=== PATIENT | male | born 1945 | race Caucasian/White ===

== ENCOUNTER 2017-06-11 16:57 | Emergency (ER) | payer OTHER ==
[2017-06-11 17:54] LABS: BASOPHILS # (AUTO) 0.1 10^3/uL (0.0-0.1); BASOPHILS % (AUTO) 0.7 %; EOSINOPHILS # (AUTO) 0.1 10^3/uL (0.0-0.7); EOSINOPHILS % (AUTO) 0.8 %; HGB - HEMOGLOBIN 12.9 g/dL (14.0-18.0); LYMPHOCYTES # (AUTO) 2.4 10^3/uL (1.5-3.5); LYMPHOCYTES % (AUTO) 30.6 %; MEAN CORPUSCULAR HEMOGLOBIN 19.4 pg (27.0-31.0); MEAN CORPUSCULAR HGB CONC 30.6 g/dL (32.0-36.0); MEAN CORPUSCULAR VOLUME 63.4 fL (80.0-94.0); MEAN PLATELET VOLUME 8.5 fL (7.4-11.4); MONOCYTES # (AUTO) 0.8 10^3/uL (0.0-1.0); MONOCYTES % (AUTO) 9.8 %; NEUTROPHILS # (AUTO) 4.5 10^3/uL (1.5-6.6); NEUTROPHILS % (AUTO) 58.1 %; PLT - PLATELET COUNT 221 10^3/uL (130-450); RED BLOOD COUNT 6.63 10^6/uL (4.70-6.10); RED CELL DISTRIBUTION WIDTH 15.8 % (12.0-15.0); WHITE BLOOD COUNT 7.7 x10^3/uL (4.8-10.8)
[2017-06-11 18:06] LABS: ALBUMIN 4.6 g/dL (3.2-5.5); ALBUMIN/GLOBULIN RATIO 1.2 (1.0-2.2); BILIRUBIN,TOTAL 0.7 mg/dL (0.2-1.0); CALCIUM 9.5 mg/dL (8.5-10.3); TOTAL PROTEIN 8.4 g/dL (6.7-8.2)
--- NOTE | 2017-06-11 18:22 | XRAY Preliminary Report ---
Exam: XR CHEST 2 VIEW X-RAY IMPRESSION: Mild bibasal opacity, atelectasis or minimal infiltrate. [facility] SITE ID: [id number]
--- NOTE | 2017-06-11 18:22 | XRAY Report ---
EXAM: CHEST RADIOGRAPHY EXAM DATE: 06/11/2017 06:02 PM. CLINICAL HISTORY: Cough. COMPARISON: None. TECHNIQUE: 2 views. FINDINGS: Lungs/Pleura: Mild bibasal opacity, atelectasis or minimal infiltrate. No focal pulmonary consolidati on. No pleural effusion or pneumothorax are evident. Mediastinum: Heart size is normal. There are aortic calcifications. Other: Right shoulder arthroplasty. IMPRESSION: Mild bibasal opacity, atelectasis or minimal infiltrate. [facility] Referring Provider Line: [phone] SITE ID: [id number]
[2017-06-11] MEDS ORDERED: IPRATROPIUM/ALBUTEROL 3 ML NEB INH STA (18:41)
--- NOTE | 2017-06-11 18:43 | ED Physician Documentation ---
PD HPI DYSPNEA - Stated complaint Stated Complaint: SOA - Chief complaint Chief Complaint: Resp - History obtained from History obtained from: Patient, Friend - History of Present Illness Timing - onset: Other (8-year-old with diabetes and hypertension but no known coronary disease presents with 10 days of minimally productive cough associated with exertional dyspnea. He has had some pain between the shoulder blades that is better with exertion. No primary chest pain or tightness. No pedal edema.) Review of Systems Ten Systems: 10 systems reviewed and negative Constitutional: denies: Fever, Chills Nose: denies: Rhinorrhea / runny nose, Congestion Cardiac: denies: Chest pain / pressure, Palpitations, Pedal edema, Calf pain Respiratory: reports: Dyspnea, Cough, Wheezing PD PAST MEDICAL HISTORY - Past Medical History Past Medical History: Yes Cardiovascular: Hypertension Endocrine/Autoimmune: Type 2 diabetes - Present Medications Home Medications: Ambulatory Orders Medication Instructions Recorded Confirmed Albuterol Sulfate [Proventil Hfa 1 - 2 puffs IH Q4H PRN #1 06/11/17 Inhaler] [email or web address] Azithromycin [Zithromax] 250 mg PO DAILY #4 tablet 06/11/17 Diabetic Medications 06/11/17 Syrge-Ndl,Ins 0.3 ml Half Jerry 1 each MC 06/11/17 [Insulin Syringe] guaiFENesin/CODEINE [Robitussin AC] 5 - 10 ml PO Q6H PRN #120 ml 06/11/17 - Allergies Allergies/Adverse Reactions: Allergies Allergy/AdvReac Type Severity Reaction Status Date / Time No Known Drug Allergies Allergy Verified 06/11/17 17:01 - Living Situation Living Situation: reports: Alone - Social History Does the pt smoke?: No Does the pt drink ETOH?: No Does the pt have substance abuse?: No - Family History Family history: reports: Non contributory PD ED PE NORMAL - Vitals Vital signs reviewed: Yes - General General: Alert and oriented X 3, No acute distress - HEENT HEENT: PERRL, EOMI - Neck Neck: Supple, no meningeal sign, No bony TTP - Cardiac Cardiac: RRR, No murmur - Respiratory Respiratory: Other (Wheezy and rhonchorous throughout) - Abdomen Abdomen: Soft, Non tender - Back Back: No CVA TTP, No spinal TTP - Derm Derm: Normal color, Warm and dry - Extremities Extremities: No edema, No calf tenderness / cord - Neuro Neuro: Alert and oriented X 3, Normal speech - Psych Psych: Normal mood, Normal affect Results - Vitals Vitals: Vital Signs - 24 hr 06/11/17 06/11/17 06/11/17 16:59 18:50 19:05 Temperature 36.5 C Heart Rate 73 72 71 Respiratory 26 H 9 L 12 Rate Blood Pressure 174/76 H 152/79 H O2 Saturation 95 94 Oxygen O2 Source Room air - EKG (time done) 1741 Rate: Rate (enter#) (71) Rhythm: NSR Intervals: RBBB Ischemia: Other (Deep T-wave inversion especially in the septal and lateral leads, there is no prior available.) Compare to prior EKG: Old EKG unavailable Computer interpretation: Agree with computer - Labs Labs: Laboratory Tests 06/11/17 06/11/17 06/11/17 17:40 17:40 17:40 WBC 7.7 RBC 6.63 H Hgb 12.9 L Hct 42.0 MCV 63.4 L MCH 19.4 L MCHC 30.6 L RDW 15.8 H Plt Count 221 MPV 8.5 Neut # 4.5 Lymph # 2.4 [place] # 0.8 Eos # 0.1 Baso # 0.1 Absolute Nucleated RBC 0.01 Nucleated RBC % 0.2 Manual Slide Review Indicated WBC Morphology NORMAL APPEARANCE Platelet Estimate NORMAL (130-450,000) Platelet Morphology 1+ LARGE PLATELETS RBC Morph Micro Appear 1+ TARGET CELLS Sodium 137 Potassium 4.5 Chloride 102 Carbon Dioxide 25 Anion Gap 10.0 BUN 28 H Creatinine 1.0 Estimated GFR (MDRD) 74 L Glucose 181 H Calcium 9.5 Total Bilirubin 0.7 AST 22 ALT 24 Alkaline Phosphatase 81 Troponin I < 0.04 Total Protein 8.4 H Albumin 4.6 Globulin 3.9 Albumin/Globulin Ratio 1.2 Lipase 41 PD MEDICAL DECISION MAKING - ED course ED course: He presents with what sounds frankly like a chest cold, has a mildly abnormal Chest x-ray, but has a very ischemic appearing EKG. There is no primary chest pain and his troponin at least initially is negative, [facility] I was not able to get a prior EKG per se but I did get an interpretation, the interpretation showed pretty much similar to what we are looking today including a "marked" T-wave abnormality. Given that I am confident that his EKG changes are old but he was still advised to follow-up for a stress test. Departure - Departure Disposition: 01 Home, Self Care Clinical Impression: Bronchitis, Abnormal EKG Condition: Good Record reviewed to determine appropriate education?: Yes Instructions: ED Bronchitis Asthmatic Prescriptions: Albuterol Sulfate [Proventil Hfa Inhaler] 1 - 2 puffs IH Q4H PRN #1 [email or web address] PRN Reason: Cough Azithromycin [Zithromax] 250 mg PO DAILY #4 tablet guaiFENesin/CODEINE [Robitussin AC] 5 - 10 ml PO Q6H PRN #120 ml PRN Reason: Cough Comments: Follow-up with your doctor at the [facility]. Take a baby aspirin every day until he or she tells you otherwise. Discussed the EKG with her, I would recommend following this with a stress test although it does seem like the changes are old from 2012 EKG. Return if worse or if he develop any chest pain.
[2017-06-11 19:55] LABS: PLATELET ESTIMATE, MANUAL NORMAL (130-450,000) (NORMAL); PLATELET MORPHOLOGY 1+ LARGE PLATELETS (NORMAL)
[2017-06-11] MEDS ORDERED: guaiFENesin/CODEINE 5 ML UDC PO STA (20:01)
[2017-06-11] MEDS ORDERED: AZITHROMYCIN 250 MG TABLET PO STA (20:01)
[2017-06-11 20:24] VITALS: BP 150/77
== END 2017-06-11 20:21 | disposition home or self-care (01) ==
LOC: ED 16:57
DX: J40 Bronchitis, not specified as acute or chronic (principal); I45.10 Unspecified right bundle-branch block; R94.31 Abnormal electrocardiogram [ECG] [EKG]; E11.9 Type 2 diabetes mellitus without complications; Z79.84 Long term (current) use of oral hypoglycemic drugs; I10 Essential (primary) hypertension
CPT/HCPCS: 36415; 71046; 80053; 83690; 84484; 85025; 93005; 94640; 99283; 99284; A9270; J7620

== ENCOUNTER 2020-03-14 14:24 | Emergency (ER) | payer MEDICARE ==
--- NOTE | 2020-03-14 15:22 | ED Physician Documentation ---
PD HPI FOCAL NEURO - Stated complaint Stated Complaint: RT SIDE FACE DROOPING - Chief complaint Chief Complaint: Neuro - History obtained from History obtained from: Patient - History of Present Illness Timing - onset: How many days ago (3) Timing - duration: Days (3) Timing - details: Gradual onset, Still present Severity of deficit: Moderate Weakness: Face (difficulty closing right eye completely and is using lubricant eye drops. Having difficulty eating.), Right. No: Arm, Leg Numbness: No: Face, Arm, Leg Associated symptoms: No: Headache, Nausea / vomiting, Fall, Head injury Contributing factors: negative: Anticoagulated Baseline status: positive: A&OX3, ambulatory, indep Similar symptoms before: Has not had sx before Review of Systems Constitutional: denies: Fever, Chills Eyes: denies: Loss of vision, Decreased vision, Photophobia Ears: denies: Loss of hearing, Ear pain, Drainage/discharge Nose: denies: Rhinorrhea / runny nose, Congestion, Sinus pressure / pain Throat: denies: Dental pain / toothache, Sore throat Neurologic: reports: Focal weakness (just the right face). denies: Numbness, Altered mental status, Headache, Head injury PD PAST MEDICAL HISTORY - Past Medical History Cardiovascular: Hypertension Respiratory: None Neuro: None Endocrine/Autoimmune: Type 2 diabetes (uses insulin, sugars usually well controlled. ) - Present Medications Home Medications: Ambulatory Orders Medication Instructions Recorded Confirmed Albuterol Sulfate [Proventil Hfa 1 - 2 puffs IH Q4H PRN #1 06/11/17 Inhaler] hfa.aer.ad Azithromycin [Zithromax] 250 mg PO DAILY #4 tablet 06/11/17 Diabetic Medications 06/11/17 Syrge-Ndl,Ins 0.3 ml Half Jerry 1 each MC 06/11/17 [Insulin Syringe] guaiFENesin/CODEINE [Robitussin AC] 5 - 10 ml PO Q6H PRN #120 ml 06/11/17 Valacyclovir HCl [Valacyclovir] 1,000 mg PO TID #15 tablet 03/14/20 dexAMETHasone [Decadron] 4 mg PO DAILY #5 tablet 03/14/20 - Allergies Allergies/Adverse Reactions: Allergies Allergy/AdvReac Type Severity Reaction Status Date / Time No Known Drug Allergies Allergy Verified 03/14/20 14:37 - Social History Does the pt smoke?: No Smoking Status: Never smoker Does the pt drink ETOH?: No Does the pt have substance abuse?: No PD ED PE NORMAL - Vitals Vital signs reviewed: Yes - General General: Alert and oriented X 3, No acute distress, Well developed/nourished, Other (obvious marked right facial weakness including forehead. ) - HEENT HEENT: PERRL, EOMI, Ears normal, Moist mucous membranes, Pharynx benign, D entition benign - Neck Neck: Supple, no meningeal sign, No adenopathy, No JVD, No bruit - Cardiac Cardiac: RRR, No murmur - Respiratory Respiratory: Clear bilaterally - Abdomen Abdomen: Soft, Non tender - Derm Derm: Normal color, Warm and dry - Neuro Neuro: Alert and oriented X 3, No sensory deficit, Normal speech, Other (marked right facial weakness including forehead. No rash nor sores. Skin not tender. ) Results - Vitals Vitals: Vital Signs - 24 hr 03/14/20 03/14/20 14:29 16:08 Temperature 36.7 C Heart Rate 92 88 Respiratory 14 14 Rate Blood Pressure 146/86 H 142/88 H O2 Saturation 96 95 Oxygen O2 Source Room air PD MEDICAL DECISION MAKING - ED course Complexity details: considered differential (obvious facial nerve palsy. No other areas of weakness. No noted problems with ear canal, teeth/gums, sinuses nor facial lesions. 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 We may be able to improve or shorten the symptoms with steroid anti-inflammatories and antiviral medication for 5 days as directed. Otherwise you commonly progresses over 4 to 5 days and takes 3 to 4 weeks to improve on average. Use lubricating eyedrops for your eye to prevent irritation. Follow-up with your primary care in about a week to week and a libby f. Discontinue the steroid if you find your blood sugars are elevating uncomfortably high. Discharge Date/Time: 03/14/20 16:09
[2020-03-14] MEDS ORDERED: CHERRY SYRUP 10 ML UDC PO ONE (15:57)
[2020-03-14] MEDS ORDERED: ACYCLOVIR 200 MG CAPSULE PO STA (15:57)
[2020-03-14] MEDS ORDERED: DEXAMETHASONE 10 MG/ML VIAL PO STA (15:57)
[2020-03-14 16:09] VITALS: BP 142/88
--- NOTE | 2020-03-15 10:02 | ED Physician Documentation ---
ED Addendum - Addendum Addendum: 03/15/20 10:02 Pharmacist called patient is unable to afford the valacyclovir acyclovir is much cheaper the patient is prescribed acyclovir 800 mg 5 times per day for 5 days. 03/15/20 10:02
== END 2020-03-14 16:09 | disposition home or self-care (01) ==
LOC: ED 14:24
DX: G51.0 Bell's palsy (principal); I10 Essential (primary) hypertension; E11.9 Type 2 diabetes mellitus without complications; Z79.4 Long term (current) use of insulin
CPT/HCPCS: 99282; 99284; A9270

== ENCOUNTER 2023-05-16 09:09 | Outpatient (CLI) | payer MEDICARE | END 2023-05-16 23:59 | disposition left against medical advice (07) | LOC: EMS 09:09 | DX: E11.65 Type 2 diabetes mellitus with hyperglycemia (principal); Z79.84 Long term (current) use of oral hypoglycemic drugs ==

== ENCOUNTER 2023-07-18 15:54 | Outpatient (CLI) | payer MEDICARE | END 2023-07-18 15:55 | disposition E | LOC: EMS 15:54 ==